=== PATIENT | male | born 2000 | race Asian ===

== ENCOUNTER 2021-05-24 10:39 | Emergency (ER) | payer BC ==
[2021-05-24 12:12] LABS: #Monocytes 0.8 thou/uL (0.11-0.59); #Neutrophils 7.6 thou/uL (1.40-6.50); %Basophils 0.5 % (0.0-1.0); %Eosinophils 0.5 % (0.0-10.0); %Lymphocytes 10.5 % (28.0-48.0); %Monocytes 8.4 % (0.0-4.0); %Neutrophils 80.2 % (31.0-61.0); Mean Corpuscular HGB CONC 34.4 g/dL (32.0-36.0); Mean Corpuscular Hemoglobin 30.6 pg (25.0-35.0); Mean Corpuscular Volume 89.1 fL (78.0-98.0); Mean Platelet Volume 8.9 fL (7.4-10.4); Platelet Count 188 thou/uL (130-400); RBC Distribution Width 11.6 % (11.5-14.5); White Blood Cell (WBC) Count 9.5 thou/uL (4.8-10.8)
[2021-05-24] MEDS ORDERED: Ketorolac Tromethamine 30 MG/ML VIAL ONE (12:49)
[2021-05-24 12:52] LABS: Albumin 4.7 g/dL (3.5-5.0)
[2021-05-24 12:53] LABS: Chloride 100 mmol/L (98-107); Potassium 3.7 mmol/L (3.5-5.1); Sodium 136 mmol/L (136-145)
[2021-05-24 12:54] LABS: Calcium 9.9 mg/dL (7.8-10.44); Glucose 119 mg/dL (70-105)
[2021-05-24 12:55] LABS: Globulin 2.9 g/dL (2.4-3.5); Protein, Total 7.6 g/dL (6.0-8.3)
[2021-05-24 12:56] LABS: Anion Gap 13 mmol/L (10-20); Bilirubin, Total 0.6 mg/dL (0.2-1.2); Carbon Dioxide 27 mmol/L (22-29)
[2021-05-24 12:57] LABS: Alkaline Phosphatase 64 U/L (50-130)
[2021-05-24 12:58] LABS: Calc. Creatinine Clearance 0 mL/min (70-130)
[2021-05-24 12:59] LABS: BUN (Urea Nitrogen) 7 mg/dL (8.9-20.6)
[2021-05-24 13:00] LABS: AST (SGOT) 14 U/L (5-34)
[2021-05-24 13:44] LABS: ALT (SGPT) 10 U/L (8-55)
[2021-05-24] MEDS ORDERED: Iopamidol-370 76% 500 ML 1 ML ONE (15:35)
[2021-05-24 22:55] LABS: SARS-CoV-2 PCR by NAA Not Detected (NotDetected)
== END 2021-05-24 14:35 | disposition home or self-care (01) ==
LOC: ERS 10:39
DX: R91.1 Solitary pulmonary nodule (principal); R07.9 Chest pain, unspecified; R06.02 Shortness of breath; Z20.822 Contact with and (suspected) exposure to COVID-19; Z87.09 Personal history of other diseases of the respiratory system
CPT/HCPCS: 71045; 71275; 80053; 85025; 93005; 96374; J1885; Q9967; U0003; U0005